=== PATIENT | female | born 1975 | race Caucasian/White ===

== ENCOUNTER 2022-02-18 12:48 | Outpatient (CLI) | payer OTHER, SELFPAY ==
[2022-02-19 01:57] LABS: Ferritin* 43.7 ng/mL (6.24-137.0)
== END 2022-02-18 12:49 | disposition home or self-care (01) ==
PROVIDERS: PCP Nurse Practitioner Family; Visit Provider Obstetrics & Gynecology
DX: Z01.419 Encounter for gynecological examination (general) (routine) without abnormal findings (principal); R79.0 Abnormal level of blood mineral; D64.9 Anemia, unspecified; Z12.4 Encounter for screening for malignant neoplasm of cervix
CPT/HCPCS: 82728; 87624; 88175

== ENCOUNTER 2022-02-28 16:47 | Outpatient (CLI) | payer OTHER, SELFPAY ==
--- NOTE | 2022-02-28 17:00 | CRLHL7_ITS ---
For Patients: As a result of the Century Cures Act, medical imaging exams and procedure reports are released immediately into your electronic medical record. You may view this report before your referring provider. If you have questions, please contact your health care provider. INDICATION: HYPOTHYROIDISM COMPARISON: 12/30/2019 TECHNIQUE: Mane scale and color Doppler images were acquired of the thyroid gland. FINDINGS: The thyroid gland demonstrates heterogeneous echogenicity and has a smooth outer contour. The right lobe measures 3.7 x 1.3 x 1.1 cm and the left lobe measures 3.4 x 1.0 x 1.1 cm in size. There are no suspicious masses or nodules. The color Doppler images demonstrate decreased vascularity. There is no evidence of cervical lymphadenopathy or parathyroid mass. IMPRESSION: Diffusely heterogeneous and hypovascular thyroid gland. Dictated by Milton Busch MD @ 03/01/2022 10:21:01 AM (Electronically Signed)
== END 2022-02-28 16:48 | disposition home or self-care (01) ==
PROVIDERS: PCP Nurse Practitioner Family; Visit Provider Obstetrics & Gynecology
DX: E03.9 Hypothyroidism, unspecified (principal)
CPT/HCPCS: 76536

== ENCOUNTER 2022-06-23 15:38 | Outpatient (CLI) | payer OTHER, SELFPAY ==
--- NOTE | 2022-06-23 15:40 | CRLHL7_ITS ---
For Patients: As a result of the Cures Act, medical imaging exams and procedure reports are released immediately into your electronic medical record. You may view this report before your referring provider. If you have questions, please contact your health care provider. BILATERAL SCREENING MAMMOGRAM WITH COMPUTER-AIDED DETECTION AND TOMOSYNTHESIS TECHNIQUE: CC and MLO views were obtained. These mammographic images have been obtained using full-field digital technique. These mammographic images were interpreted with the benefit of computer-aided detection. Breast Tomosynthesis was used in this interpretation. COMPARISON FILM: 05/27/21, 04/10/20, 03/26/19. FINDINGS: There are scattered areas of fibroglandular density IMPRESSION: There is no radiographic evidence for malignancy. ASSESSMENT: BI-RADS Category 2: Benign RECOMMENDATION: Routine screening mammogram in 1 year. A lay language report of this examination will be provided to the patient. Milton Busch M.D. Diagnostic Radiologist [email or web address] NORA/gayle / be/Dictated by: Milton Busch MD @ 06/24/2022 11:14:00 AM (Electronically Signed)
== END 2022-06-23 15:39 | disposition home or self-care (01) ==
LOC: MAMMO 15:41
PROVIDERS: PCP Nurse Practitioner Family; Visit Provider Nurse Practitioner Family
DX: Z12.31 Encounter for screening mammogram for malignant neoplasm of breast (principal)
CPT/HCPCS: 77063; 77067

== ENCOUNTER 2023-07-07 06:40 | Outpatient (CLI) | payer BC, SELFPAY ==
--- OUTSIDE RECORDS SUMMARY | 2023-07-11 07:31 | XMS_ITS | Clinical Summary ---
Author Name Unknown Organization [facility] Address [place], [place] [address] Care Team Providers Care Farm Advisor Name Role Phone Pcp, No Primary Care Provider Unavailabl e Allergies Active Allergy Reactions Criticality Noted Date Comments Gluten *Unknown 02/04/2021 House Dust *Unknown Low 09/07/2020 Lactose Stomach Upset 09/07/2020 Oats Stomach Upset 09/07/2020 Medications Medication Sig Dispensed Refills Start Date End Date Status levothyroxine (SYNTHROID) 50 mcg tablet Take 1 tablet by mouth before breakfast. 0 08/30/2011 Active liothyronine (CYTOMEL) 5 mcg tablet TAKE 4 TABLETS BY MOUTH IN THE MORNING AND 3 TABLETS IN THE AFTERNOON. 0 02/23/2022 Active levothyroxine (SYNTHROID) 75 mcg tablet Daily 0 12/22/2017 Active cholecalciferol (VITAMIN D3) 1,000 unit tablet 2,000 units. 0 10/05/2017 Active FLUoxetine (PROZAC) 10 mg capsule Take 10 mg by mouth once daily. 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 pt's mom was age 16 Heart Disease Maternal Grandmother ? pt's mom was age 3 Heart Disease Mother rheumatic feve r valve Thyroid Disease Mother Thyroid Disease Sister Relation Name Status Comments Father Maternal Grandfather Maternal Grandmother Mother Sister Social History Tobacco Use Types Packs/Day Years Used Date Smoking Tobacco: Former Smokeless Tobacco: Never Alcohol Use Standard Drinks/Week Comments Yes 0 (1 standard drink = 0.6 oz pur e alcohol) occasional Sex and Gender Information Value Date Recorded Sex Assigned at Not on file Gender Identity Not on file Sexual Orientation Not on file Obstetrics History Last Filed Vital Signs Vital Sign Reading Time Taken Comments Blood Pressure 100/70 02/17/2015 11:27 AM CDT Pulse 78 04/13/2022 3:30 PM CDT Temperature - - Respiratory Rate - - Oxygen Saturation 98% 04/13/2022 3:30 PM CDT Inhaled Oxygen Concentration - - Weight 94.3 kg (207 lb 12.8 oz) 04/13/2022 3:30 PM CDT Height 161.3 cm (5' 3.5) 02/17/2015 11 :27 AM CDT Body Mass Index 36.23 02/17/2015 11:27 AM CDT Plan of Treatment Health Maintenance Due Date Last Done Comments COVID-19 vaccine series (#1) 1977 Depression screening for age 12+ 1989 HIV for age 15-65 1992 BMI (ht and wt on same day) for age 18+ 1995 Hepatitis C screening for age 18-79 1995 Tetanus booster 04/19/2021 04/19/2011 Colonoscopy through age 75 2022 03/15/2012 Lipids for age 45-75 2022 Mammogram for age 45-75 2022 Influenza for age 9-49 02/17/2023 7, 03/27/2012, 03/21/2011, Additional history exists Pap test for age 21-65 02/18/2025 2, 02/18/2022, 07/29/2020, Additional history exists Tdap Completed 04/19/2011 Pneumococcal series for age 6-64 Aged Out No longer eligible based on patient's age to complete this topic Care Teams Farm Advisor Relationship Specialty Start Date End Date Pcp, No . PCP - General 01/26/15
== END 2023-07-07 06:41 | disposition home or self-care (01) ==
LOC: NFLDREF 07-11 07:30
PROVIDERS: PCP Nurse Practitioner Family; Referring Provider Nurse Practitioner Family; Visit Provider Nurse Practitioner Family
DX: R19.7 Diarrhea, unspecified (principal)
CPT/HCPCS: 87338; 87505

== ENCOUNTER 2023-08-15 15:37 | Outpatient (CLI) | payer BC, SELFPAY ==
--- NOTE | 2023-08-15 15:40 | MM_ITS ---
Patient: KELL WISE Facility:?[facility] Patient ID:?[id number] Site Patient ID:?[id number]. Site :?1975 Study:?XRay-Breast 3D W/CAD-08/15/2023 4:03:32 PM Ordering Physician:Lorie Hu Final Report: BILATERAL SCREENING MAMMOGRAM WITH COMPUTER-AIDED DETECTION AND TOMOSYNTHESIS TECHNIQUE: CC and MLO views were obtained. These mammographic images have been obtained using full-field digital technique. These mammographic images were interpreted with the benefit of computer-aided detection. Breast Tomosynthesis was used in this interpretation. COMPARISON FILM: 06/23/22, 05/27/21, 04/20/20. FINDINGS: There are scattered areas of fibroglandular density. IMPRESSION: There is no radiographic evidence for malignancy. ASSESSMENT: BI-RADS Category 1: Negative RECOMMENDATION: Routine screening mammogram in 1 year. A lay language report of this examination will be provided to the patient. Milton Busch M.D. Diagnostic Radiologist [email or web address] DSM/sp R& Transcribed: 2:43 p.m. SP/Dictated by: Milton Busch MD @ 08/16/2023 10:45:00 AM Signed by:?Milton Busch MD @08/16/2023 3:20:33 PM (Electronic Signature)
== END 2023-08-15 15:38 | disposition home or self-care (01) ==
LOC: MAMMO 15:37
PROVIDERS: PCP Nurse Practitioner Family; Visit Provider Nurse Practitioner Family
DX: Z12.31 Encounter for screening mammogram for malignant neoplasm of breast (principal)
CPT/HCPCS: 77063; 77067

== ENCOUNTER 2024-02-01 12:24 | Outpatient (CLI) | payer BC, SELFPAY ==
--- OUTSIDE RECORDS SUMMARY | 2024-02-01 12:27 | XMS_ITS | Clinical Summary ---
Author Organization [facility] Address [place], [place] [address] Care Team Providers Care Director Of Community Center Name Role Phone Pcp, No Primary Care [...] MORNING AND 3 TABLETS IN THE AFTERNOON. 02/23/2022 Active levothyroxine (SYNTHROID) 75 mcg tablet Daily 12/22/2017 Active cholecalciferol (VITAMIN D3) 1,000 unit tablet 2,000 units. 10/05/2017 Active FLUoxetine (PROZAC) 10 mg capsule Take 10 mg by mouth once daily. 02/23/2022 Active durable medical equipment (DME)Indications:Marleny ntar fasciitis [id number] Plantar Fasciitis Night Splint, Medium 1 Each 04/13/2022 Active polyethylene glycol-electrolyte (GOLYTELY) 236-22.74-6.74 -5.86 gram suspensionIndication s:Encounter for screening colonoscopy Drink 2 liters the day before colonoscopy and 2 liters 6 hours before colonoscopy appointment 4000 mL 08/21/2023 Active levothyroxine (SYNTHROID) 100 mcg tablet Take 100 mcg by mouth once daily. 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 Encounters Date Type Department Care Team Description 11/30/2023 8:00 AM CDT Office Visit [facility] [address] [place] [address] Reginaldo Muñoz MD Procedure (Colonoscopy) 11/30/2023 Travel 11/23/2023 Telephone [facility] [address] [place] [address] Reginaldo Muñoz MD Appointment Reminder (Colonoscopy) from Last 3 Months Immunizations Name Administration Dates Next Due Influenza, [...] = 0.6 oz pur e alcohol) occasional Social Connections Answer Date Recorded Frequency of Communication with Friends and Fami ly Not on file 11/30/2023 Sex and Gender Information Value Date Recorded Sex Assigned at Not on file Gender Identity Not on file Sexual Orientation Not on file Obstetrics History Last Filed Vital Signs Vital Sign Reading Time Taken Comments Blood Pressure 123/74 11/30/2023 9:23 AM CDT Pulse 64 11/30/2023 9:23 AM CDT Temperature - - Respiratory Rate 16 11/30/2023 9:23 AM CDT Oxygen Saturation 97% 11/30/2023 9:23 AM CDT Inhaled Oxygen Concentration - - Weight 94.3 kg (207 lb 12.8 oz) 04/13/2022 3:30 PM CDT Height 161.3 cm (5' 3.5) 02/17/2015 11 :27 AM CDT Body Mass Index 36.23 02/17/2015 11:27 AM CDT Plan of Treatment Health Maintenance Due Date Last Done Comments Depression screening for age 12+ 1989 HIV for age 15-65 1992 BMI (ht and wt on same day) for age 18+ 1995 Hepatitis C screening for age 18-79 1995 Tetanus booster 04/19/2021 04/19/2011 Lipids for age 45-75 2022 Mammogram for age 45-75 2022 COVID-19 vaccine series ( season) 2023 Influenza for age 9-49 02/18/2024 7, 03/27/2012, 03/21/2011, Additional history exists Pap test for age 21-65 02/18/2025 2, 02/18/2022, 07/29/2020, Additional history exists Colonoscopy through age 75 11/29/203311/29, 11/30/2023, 03/15/2012 Tdap Completed 04/19/2011 Pneumococcal series for age 6-64 Aged Out No longer eligible based on patient's age to complete this topic Procedures Procedure Name Priority Date/Time Associated Diagnosis Comments PATH TISSUE EXAM Routine 11/30/2023 1:01 PM CDT Encounter for screening colonoscopy Polyp of colon, unspecified part of colon, unspecified type Diverticulosis of large intestine without hemorrhage COLONOSCOPY 11/30/2023 7:52 AM CDT HPV THIN PREP Routine 02/18/2022 12:55 PM CDT from Last 3 Months or Most Recently Relevant to Health Maintenance Results * PATH TISSUE EXAM (11/30/2023 1:01 PM CDT) Case Report Pathology Report ?Case: [id number] ? Authorizing Provider: ??Reginaldo Muñoz MD ?? Collected: ? 11/30/2023 1301 ? Ordering Location: ? Do It In Person [facility] ?? Received: ?11/30/2023 1301 ? Clinic ? Pathologist: ? Sapphire Valiente DO ? Specimen: ?Cecal Polyp ? 12/04/2023 2:00 PM CDT [facility] Final Diagnosis A) COLON, CECUM, BIOPSY: 1. Normal colonic mucosa; a lymphoid aggregate is present (clinically,1 polyp) 2. Negative for serrated change, dysplasia, and malignancy 12/04/2023 2:00 PM CDT [facility] Comment Deeper tissue levels were examined. 12/04/2023 2:00 PM CDT [facility] Clinical Information Ms. Shah is a 48 y.o. who presents for colonoscopy examination. A 2 mm cecal polyp was identified. 12/04/2023 2:00 PM CDT [facility] Gross Description A) Received in formalin are 2 payton mucosal fragments ranging from 1 mm to 3 mm in greatest dimension, which are entirely submitted in one cassette. It is labeled with the patient's name and designated Melody Duron Noon 12/01/2023 10:50 AM 12/04/2023 2:00 PM CDT [facility] Microscopic Description The final diagnosis is based on microscopic examination of appropriate sections of all specimens. 12/04/2023 2:00 PM CDT [facility] Additional Information Interpreted at [facility] [address] [facility] [address] [address] 12/04/2023 2:00 PM CDT [facility] Other (Cecal Polyp) Non-Blood / Unknown 11/30/2023 1:01 PM CDT 11/30/2023 1:01 PM CDT Reginaldo Muñoz MD PATHOLOGY/CYTOLOG Y [facility] [address] [place] [address], * COLONOSCOPY (11/30/2023 7:52 AM CDT) 11/30/2023 7:52 AM CDT Narrative Transcriptions Reginaldo Muñoz MD - 11/30/2023 9:11 AM CDT Patient Name: Awilda Shah Procedure Date: 11/30/2023 Gender: Female Date of : 1975 Admit Type: Outpatient Procedure: Colonoscopy Proceduralist: Reginaldo Muñoz MD , Jeanine Arceo (Nurse), Alexandrea Mcwilliams (Nurse) Indications/Pre-Op Diagnosis: Screening for colorectal malignant neoplasm, Last colonoscopy: February 2012 Medications: Fentanyl 100 micrograms IV, Midazolam 4 mgIV, The level of sedation administered wasmoderate Procedure Description: The patient had risks, benefits and alternatives explained to andgave informed consent. The patient had a stable cardiopulmonary status and judged an adequate candidate for conscious sedation. The endoscope [id number] was passed through the anus andadvanced to the cecum, identified by appendiceal orifice and ileocecal valve.The colonoscopy was performed without difficulty. The patient toleratedthe procedure well. The quality of the bowel preparation was good. The ileocecal valve, appendiceal orifice, and rectum were photographed. Complications: No immediate complications. Estimated Blood Loss & Specimen: Estimated blood loss: none. Specimen collected - Yes and sent to Laboratory Findings: The perianal and digital rectal examinations were normal. Scattered small-mouthed diverticula were found in the sigmoid colon, descending colon and ascending colon. A 2 mm polyp was found in the cecum. The polyp was sessile. The polyp was removed with a cold biopsy forceps. Resection and retrieval were complete. The exam was otherwise without abnormality. Impressions/Post-Op Diagnosis: - Diverticulosis in the sigmoid colon, in the descending colon and in the ascending colon. - One 2 mm polyp in the cecum, removed with a cold biopsy forceps. Resected and retrieved. - The examination was otherwise normal. Recommendation: - Patient has a contact number available for emergencies. The signsand symptoms of potential delayed complications were discussed with the patient. Return to normal activities tomorrow. Written discharge instructions were provided to the patient. - Resume previous diet. - Continue present medications. - Await pathology results. - Repeat colonoscopy for surveillance based on pathology results. Moderate Sedation: A time out was performed before the procedure. Moderate (conscious) sedation was administered by the endoscopy nurse and supervised bythe endoscopist. The following parameters were monitored: oxygensaturation, heart rate, blood pressure, EKG, CO2, respiratory rate, adequacy of pulmonary ventilation and reponse to care. Please refer to the patient's medical record flowsheets and nursing notes for moderate sedation details. Total physician intraservice time was 17 minutes. Reginaldo Muñoz MD 11/30/2023 9:11:37 AM This report has been signed electronically. Note Initiated On: 11/30/2023 7:52 AM Procedure Code(s): --- Professional --- 71211, Colonoscopy, flexible; with biopsy, single or multiple Diagnosis Code(s): --- Professional --- Z12.11, Encounter for screening formalignant neoplasm of colon D12.0, Benign neoplasm of cecum K57.30, Diverticulosis of large intestine without perforation or abscess withoutbleeding CPT copyright 2022 [employer]. All rights reserved. The codes documented in this report are preliminary and upon clinical coder reviewmay be revised to meet current compliance requirements. Scope In: 8:49:11 AM Scope Withdrawal Time 0 hours 10 minutes 44 seconds Scope Out: 9:03:14 AM Reginaldo Muñoz MD PROCEDURE ORD * HPV HIGH RISK (02/18/2022 12:55 PM CDT) TYPE 16 Negative Negative 02/24/2022 2:56 PM CDT [facility] TYPE 18 Negative Negative 02/24/2022 2:56 PM CDT [facility] OTHER HIGH RISK TYPES Negative Negative 02/24/2022 2:56 PM CDT [facility] Other (Cervical/Vagina l) 02/18/2022 12:55 PM CDT 02/23/2022 8:26 AM CDT [facility] 02/24/2022 2:56 PM CDT HPV types 16, 18, 31, 33, 35, 39, 45, 51, 52, 56, 58, 59, 66 and 68 DNA were undetectable or below the pre-set threshold. Methodology: Xi Dat 4800 HPV Test Delmy Zheng MD MICROBIOLOGY [facility] [address] [place] [address], from Last 3 Months or Most Recently Relevant to Health Maintenance Care Teams Director Of Community Center Relationship Specialty Start Date End Date Pcp, No . PCP - General 01/26/15
== END 2024-02-01 12:25 | disposition home or self-care (01) ==
PROVIDERS: PCP Nurse Practitioner Family; Visit Provider Nurse Practitioner Family
DX: Z13.220 Encounter for screening for lipoid disorders (principal); M25.541 Pain in joints of right hand; M25.542 Pain in joints of left hand
CPT/HCPCS: 80061; 82306

== ENCOUNTER 2024-05-03 14:12 | Outpatient (CLI) | payer BC, SELFPAY ==
--- OUTSIDE RECORDS SUMMARY | 2024-05-03 14:17 | XMS_ITS | Clinical Summary ---
Author Organization 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 Encounters Date Type Department Care Team Description 04/16/2024 3:45 PM CDT Orders Only [facility] [address] [place] [address] Lab, [facility] 04/16/2024 Travel from Last 3 Months Immunizations Name Administration [...] 02/17/2015 11:27 AM CDT Plan of Treatment Upcoming Encounters Date Type Department Care Team (Late st Contact Info) Description 05/15/2024 1:00 PM PROGRAM PROJECT MANAGER Office Visit [facility] [address] [place] [address] Georgi Rajput DPM [address] [place] [address] Health Maintenance Due Date Last Done Comments Depression screening for age 12+ 1989 HIV for age 15-65 1992 BMI (ht and wt on same day) for age 18+ 1995 Hepatitis C screening for age 18-79 1995 Tetanus booster 04/19/2021 04/19/2011 Lipids for age 45-75 2022 Mammogram for age 45-75 2022 COVID-19 vaccine series ( season) 2024 Influenza for age 9-49 02/18/2024 7, 03/27/2012, 03/21/2011, Additional history exists Pap test for age 21-65 02/18/2025 2, 02/18/2022, 07/29/2020, Additional history exists Colonoscopy through age 75 11/29/203311/29, 11/30/2023, 03/15/2012 Tdap Completed 04/19/2011 Pneumococcal series for age 6-64 Aged Out No longer eligible based on patient's age to complete this topic Procedures Procedure Name Priority Date/Time Associated Diagnosis Comments COLONOSCOPY 11/30/2023 7:52 AM CDT HPV HIGH RISK Routine 02/18/2022 12:55 PM CDT from Last 3 Months or Most Recently Relevant to Health Maintenance Results * COLONOSCOPY (11/30/2023 7:52 AM CDT) 11/30/2023 [...] adequate candidate for conscious sedation. The endoscope [id number] was passed through the anus andadvanced to [...] 7:52 AM Procedure Code(s): --- Professional --- 76333, Colonoscopy, flexible; with biopsy, single or multiple Diagnosis Code(s): --- Professional --- Z12.11, Encounter for screening formalignant neoplasm of colon D12.0, Benign neoplasm of cecum K57.30, Diverticulosis of large intestine without perforation or abscess withoutbleeding CPT copyright 2022 [employer]. All rights reserved. The codes documented in this report are preliminary and upon school traffic supervisor reviewmay be revised to meet current compliance requirements. Scope In: 8:49:11 AM Scope Withdrawal Time 0 hours 10 minutes 44 seconds Scope Out: 9:03:14 AM Reginaldo Muñoz MD PROCEDURE ORD * HPV HIGH RISK (02/18/2022 12:55 PM CDT) TYPE 16 Negative Negative 02/24/2022 2:56 PM CDT [facility] TYPE 18 Negative Negative 02/24/2022 2:56 PM CDT [facility] OTHER HIGH RISK TYPES Negative Negative 02/24/2022 2:56 PM CDT [facility] Other (Cervical/Vagina l) 02/18/2022 12:55 PM CDT 02/23/2022 8:26 AM CDT Narrative [facility] - 02/24/2022 2:56 PM CDT HPV types 16, 18, 31, 33, 35, 39, 45, 51, 52, 56, 58, 59, 66 and 68 DNA were undetectable or below the pre-set threshold. Methodology: Xi Dat 4800 HPV Test Delmy Zheng MD MICROBIOLOGY [facility] [address] [place] [address], from Last 3 Months or Most Recently Relevant to Health Maintenance Care Teams Filter Plant Supervisor Relationship Specialty Start Date End Date Pcp, No . PCP - General 01/26/15
[2024-05-06 17:06] LABS: HPV Source Cervix; HPV, High Risk by TMA Not Detected
== END 2024-05-03 14:13 | disposition home or self-care (01) ==
PROVIDERS: PCP Nurse Practitioner Family; Visit Provider Obstetrics & Gynecology
DX: Z01.419 Encounter for gynecological examination (general) (routine) without abnormal findings (principal); Z12.4 Encounter for screening for malignant neoplasm of cervix; Z11.51 Encounter for screening for human papillomavirus (HPV)
CPT/HCPCS: 87624; 87625; 88141; 88142

== ENCOUNTER 2024-09-17 15:03 | Outpatient (CLI) | payer BC, SELFPAY ==
--- NOTE | 2024-09-17 15:20 | CRLHL7_ITS ---
For Patients: As a result of the Century Cures Act, medical imaging exams and procedure reports are released immediately into your electronic medical record. You may view this report before your referring provider. If you have questions, please contact your health care provider. BILATERAL SCREENING MAMMOGRAM WITH COMPUTER-AIDED DETECTION AND TOMOSYNTHESIS TECHNIQUE: CC and MLO views were obtained. These mammographic images have been obtained using full-field digital technique. These mammographic images were interpreted with the benefit of computer-aided detection. Breast Tomosynthesis was used in this interpretation. COMPARISON FILM: 08/15/23, 06/23/22, 05/27/21. FINDINGS: There are scattered areas of fibroglandular density. IMPRESSION: There is no radiographic evidence for malignancy. ASSESSMENT: BI-RADS Category 2: Benign RECOMMENDATION: Routine screening mammogram in 1 year. A lay language report of this examination will be provided to the patient. Milton Busch M.D. Diagnostic Radiologist [email or web address] SP/Dictated by: Milton Busch MD @ 09/18/2024 10:33:00 AM (Electronically Signed)
== END 2024-09-17 15:04 | disposition home or self-care (01) ==
LOC: MAMMO 15:04
PROVIDERS: PCP Nurse Practitioner Family; Visit Provider Nurse Practitioner Family
DX: Z12.31 Encounter for screening mammogram for malignant neoplasm of breast (principal)
CPT/HCPCS: 77063; 77067

== ENCOUNTER 2025-01-28 08:50 | Outpatient (CLI) | payer BC, SELFPAY | END 2025-01-28 08:51 | disposition home or self-care (01) | LOC: NFLDREF 01-31 18:27 | PROVIDERS: PCP Nurse Practitioner Family; Referring Provider Nurse Practitioner Family; Visit Provider Nurse Practitioner Family | DX: E78.5 Hyperlipidemia, unspecified (principal) | CPT/HCPCS: 80061 ==